=== PATIENT | male | born 1975 | race Caucasian/White ===

== ENCOUNTER 2019-12-01 07:27 | Outpatient (RCR) | payer BC ==
[2019-12-01 07:40] VITALS: BP 135/76; PULSE 75; TEMP 98.1
== END 2020-02-26 | disposition still patient (30) ==
LOC: COL.ER
DX: Z23 Encounter for immunization (principal); Z20.3 Contact with and (suspected) exposure to rabies

== ENCOUNTER 2022-12-18 11:48 | Emergency (ER) | payer BC ==
[~2022-12-18] VITALS: Ht 27.9 cm; Wt 80.9 kg
[2022-12-18 11:54] VITALS: TEMP 98.6
[2022-12-18 12:18] LABS: BASO % 0.4 % (0.0-2.0); EOS # 0.1 K/mm3 (0.0-0.7); GRAN # 3.1 K/mm3 (1.4-6.5); GRAN % 63.6 % (42.2-75.2); HEMATOCRIT 42.4 % (42.0-52.0); HEMOGLOBIN 14.6 g/dl (13.5-18.0); LYMPH # 1.4 K/mm3 (1.2-3.4); LYMPH % 27.5 % (20.0-51.0); MEAN CELL VOLUME 89 fl (80.0-100.0); MEAN CORPUSCULAR HEMOGLOBIN 31 pg (27-31); MEAN CORPUSCULAR HGB CONC 34 g/dl (33.0-37.0); MEAN PLATELET VOLUME 9.6 fl (7.4-10.4); MONO # 0.4 K/mm3 (0.1-0.6); MONO % 7.3 % (1.7-9.3); PLATELET COUNT 221 K/mm3 (130-400); RED BLOOD COUNT 4.75 M/mm3 (4.20-5.60); REDCELL DISTRIBUTION WIDTH-CV 12.6 % (11.5-14.5)
[2022-12-18 12:28] LABS: ALANINE AMINOTRANSFERASE 30 U/L (0-55); ALBUMIN 4.3 gm/dL (3.5-5.0); ALKALINE PHOSPHATASE 47 U/L (40-150); ANION GAP 11 mmol/L (7-16); AST,SGOT 34 U/L (5-34); BILIRUBIN,TOTAL 1.6 mg/dL (0.2-1.2); BLOOD UREA NITROGEN 10 mg/dL (9-21); CALCIUM 9.7 mg/dL (8.4-10.2); CARBON DIOXIDE 24 mmol/L (22-29); CHLORIDE 106 mmol/L (98-107); CREATININE, serum 0.87 mg/dL (0.72-1.25); GLUCOSE 104 mg/dL (70-99); LIPASE 37 U/L (8-78); POTASSIUM 3.8 mmol/L (3.5-4.5); SODIUM 141 mmol/L (136-145); TOTAL PROTEIN 6.9 gm/dL (6.2-8.1)
[2022-12-18 12:36] LABS: TROPONIN-I < 0.010 ng/mL (0.00-0.033)
[2022-12-18 15:21] VITALS: BP 146/88; PULSE 71
== END 2022-12-18 15:21 | disposition home or self-care (01) ==
LOC: COL.ER 11:48
PROVIDERS: Nurse Practitioner
DX: R07.89 Other chest pain (principal); X50.0XXA Overexertion from strenuous movement or load, initial encounter